=== PATIENT | female | born 1985 | race Hispanic/Latino ===

== ENCOUNTER 2019-01-22 00:39 | Emergency (ER) | payer MEDICARE ==
[~2019-01-22] VITALS: Ht 157.5 cm; Wt 54.4 kg
--- NOTE | 2019-01-22 01:13 | NUR ---
TO TRIAGE C MD TO DISCUSS PLAN OF CARE. PT C/O HEAVY MENSTRAL CYCLE AND LOWER ABDOMEN PAIN. PT STATES THAT HAS NOT TRIED OVER THE COUNTER MEDICATION FOR PAIN. PT REQUESTING PELVIC EXAM. PT INFORMED THAT MD TO PERFORM PELVIC EXAM. PT ENCOURAGED TO FOLLOW-UP WITH OBGYN ON OUTPATIENT BASIS. INFORMED THAT WOULD COLLOECTED URINE FOR UA AND UPT. Addendum: 01/22/19 at 0126 by MAURA TO TRIAGE C MD TO DISCUSS PLAN OF CARE. PT C/O HEAVY MENSTRAL CYCLE AND LOWER ABDOMEN PAIN. PT STATES THAT HAS NOT TRIED OVER THE COUNTER MEDICATION FOR PAIN. PT ENCOURAGED TO TRY NSAIDS LIKE IBUPROFEN OR MOTRIN. PT REQUESTING PELVIC EXAM. PT INFORMED THAT MD TO PERFORM PELVIC EXAM. PT ENCOURAGED TO FOLLOW-UP WITH OBGYN ON OUTPATIENT BASIS. INFORMED THAT WOULD COLLECT URINE FOR UA AND UPT. LISTENED TO CONCERNS, QUESTIONS ANSWERED.
[2019-01-22 02:07] LABS: PREGNANCY TEST, URINE NEGATIVE (NEGATIVE)
[2019-01-22 02:10] LABS: BILIRUBIN,URINE NEGATIVE (NEGATIVE); CLARITY,URINE CLEAR (CLEAR); COLOR,URINE YELLOW (YELLOW); KETONES,URINE NEGATIVE (NEGATIVE); LEUKOCYTE ESTERASE ,URINE NEGATIVE (NEGATIVE); NITRITE,URINE NEGATIVE (NEGATIVE); PROTEIN,URINE DIPSTICK NEGATIVE (NEGATIVE); URINE UROBILINOGEN 0.2 mg/dL (0.2 - 1)
[2019-01-22 02:16] LABS: BACTERIA,URINE FEW /HPF; EPITHELIAL CELLS,URINE FEW /LPF
--- NOTE | 2019-01-22 03:05 | NUR ---
ER MD AT PTS BEDSIDE, PELVIC EXAM PERFORMED, PT TOLERATED WELL
[2019-01-22 03:16] VITALS: BP 122/69
== END 2019-01-22 03:37 | disposition home or self-care (01) ==
LOC: ER 00:39
DX: N92.0 Excessive and frequent menstruation with regular cycle (principal); N93.9 Abnormal uterine and vaginal bleeding, unspecified
CPT/HCPCS: 81001; 81025; 99283